=== PATIENT | female | born 1970 | race Caucasian/White ===

== ENCOUNTER 2019-07-25 09:48 | Emergency (ER) | payer BC ==
[~2019-07-25] VITALS: Ht 162.6 cm; Wt 72.1 kg
[~2019-07-25 09:48] MED LIST: ATOR20TA38 PO; CYAN500T46 PO; ERGO500014 PO; ESCI10TA48 PO; FENO130C6 PO; HYDR-842 PO; PENI500T PO; PRAV10TA43 PO; SUMA100T4 PO; TOPI25CA2 PO; TRAZ-149 PO
[2019-07-25 09:55] VITALS: Ht 162.6 cm; Wt 72.1 kg
[2019-07-25 14:21] VITALS: BP 102/58; PULSE 65; RESP 18
== END 2019-07-25 14:23 | disposition home or self-care (01) ==
LOC: FTE 09:48 → E/R 14:23
DX: M79.605 Pain in left leg (principal); R07.9 Chest pain, unspecified
CPT/HCPCS: 71045; 80053; 81025; 84484; 85025; 85378; 93005; 93971; Z7502